=== PATIENT | male | born 1980 | race Caucasian/White ===

== ENCOUNTER 2017-03-13 18:55 | Emergency (ER) | payer MEDICAID ==
[~2017-03-13] VITALS: Ht 167.6 cm; Wt 63.5 kg
[2017-03-13 19:02] VITALS: Ht 167.6 cm; Wt 63.5 kg
[2017-03-13] MEDS ORDERED: ACET500C5 PO (20:19)
--- NOTE | 2017-04-06 10:18 | ERD ---
ER Documentation Chief Complaint Date/Time DATE of dictation: 04/06/17 TIME: 10:16 Date of service 03/13/2017 Chief Complaint headache x 4 days HPI 29-year-old male presents with bitemporal headache for last 4 days. Denies fevers, visual changes, vomiting, neck stiffness, weakness, bowel bladder incontinence. Denies trauma ROS All systems reviewed and are negative except as per history of present illness. Medications Home Meds Active Scripts Acetaminophen* (Tylophen*) 500 Mg Capsule, 1 CAP PO Q6H Y for PAIN AND OR ELEVATED TEMP, #20 CAP Prov:OSMIN MCDONALD PA-C 03/13/17 Allergies Allergies: Coded Allergies: No Known Allergy (Unverified , 08/25/13) PMhx/Soc Medical and Surgical Hx: pt denies Medical Hx, pt denies Surgical Hx Hx Alcohol Use: Yes (occ) Hx Substance Use: No Hx Tobacco Use: Yes (occ) Smoking Status: Current some day smoker Physical Exam Physical Exam Const: [], [id number] per Head: Atraumatic Eyes: Normal Conjunctiva. Eyes PERRLA extraocular movements intact ENT: Normal External Ears, Nose and Mouth. Neck: Full range of motion..~ No meningismus. Resp: Clear to auscultation bilaterally Cardio: Regular rate and rhythm, no murmurs Abd: Soft, non tender, non distended. Normal bowel sounds Skin: No petechiae or rashes Back: No midline or flank tenderness Ext: No cyanosis, or edema Neur: Awake and alert. Cranial nerves II through XII grossly intact. Normal gait. No cerebellar signs Psych: Normal Mood and Affect Procedures/MDM Patient presents with signs and symptoms of a bitemporal headache, likely tension headache. Signs or symptoms do not suggest neurologic deficit, meningitis, additional emergent cause of headache. He was treated with Tylenol further observation at home. The patient was stable with no new complaints during the ER course. Clinically, there is no current evidence to suggest meningitis, sepsis, acute abdomen, pneumonia, acute coronary syndrome, pulmonary embolism, or any other emergent condition appearing to require further evaluation or hospitalization. The patient should certainly return for any new or worsening symptoms per the aftercare instructions. They should otherwise follow-up with her primary care doctor for reevaluation this week. Departure Diagnosis: Primary Impression: Headache Condition: Stable Patient Instructions: Self-Care for Headaches Additional Instructions: Follow up with your PCP within the next 1-3 days for a more thorough evaluation and a possible referral to a specialist. Return the the emergency department immediately if symptoms worsen or change. If you have any questions regarding medications, ask your pharmacist or us before you leave. If any adverse reactions occur while taking your medications, discontinue the treatment and return to the emergency department immediately. Take your medications as directed, and complete the entire course of treatment. TAMMY MASON MD Apr 06, 2017 10:18
== END 2017-03-13 20:40 | disposition home or self-care (01) ==
LOC: FTE 18:55
DX: R51 Headache (principal); F17.210 Nicotine dependence, cigarettes, uncomplicated
CPT/HCPCS: 99283

== ENCOUNTER 2019-04-27 22:18 | Emergency (ER) | payer SELFPAY ==
[~2019-04-27] VITALS: Ht 152.4 cm; Wt 66.5 kg
[~2019-04-27 22:18] MED LIST: ACET500C5 PO
[2019-04-27 22:24] VITALS: BP 167/85; PULSE 86; RESP 18; Ht 152.4 cm; Wt 66.5 kg
== END 2019-04-28 01:35 | disposition left against medical advice (07) ==
LOC: FTE 22:18
DX: Z53.21 Procedure and treatment not carried out due to patient leaving prior to being seen by health care provider (principal)